=== PATIENT | female | born 1960 | race Asian ===

== ENCOUNTER 2016-02-29 05:43 | Day surgery (SDC) | payer OTHER ==
[~2016-02-29] VITALS: Ht 162.6 cm; Wt 49.9 kg
[~2016-02-29 05:43] MED LIST: NO HOME MEDS
[2016-02-29 06:36] VITALS: Ht 162.6 cm; Wt 49.9 kg
[2016-02-29] MEDS ORDERED: OMEP10CA4 PO (06:49)
[2016-02-29 06:59] VITALS: BP 123/59; PULSE 70; RESP 15
[2016-02-29] MEDS ORDERED: FENTAnyl 50 MCG/ML VIAL ONE (07:42)
[2016-02-29] MEDS ORDERED: MIDAZOLAM 1 MG/ML 2 ML INJ ONE (07:42)
[2016-02-29 08:05] VITALS: BP 105/51; PULSE 64; RESP 15
--- NOTE | 2016-02-29 18:15 | GILP ---
DATE OF PROCEDURE: 02/29/2016 NAME OF PROCEDURES: Esophagogastroduodenoscopy and biopsy. SURGEON: Celio Morgan MD PREOPERATIVE DIAGNOSES: 1. Abdominal pain. 2. Chronic heartburn. POSTOPERATIVE DIAGNOSES: 1. Hiatal hernia. 2. Lower esophageal ring. 3. Reflux esophagitis with erosions. 4. Gastritis. 5. Gastric mucosal biopsies were taken for Helicobacter pylori test. INDICATION FOR THE PROCEDURE: Ms. Rupert Cota is a 55-year-old female patient who had up per abdominal pain and chronic heartburn, not responding to therapy. The patient was scheduled for endoscopic examination for further evaluation. The procedure and possible complications were well explained to the patient. She understood and con sented to the procedure. DESCRIPTION OF PROCEDURE: Under the influence of fentanyl and Versed, the gastroscope was carefully introduced into the esophagus and under direct vision, it was advanced to the stomach and through t he pylorus into the duodenal bulb and descending duodenum. FINDINGS: ESOPHAGUS: The patient had hiatal hernia and lower esophageal ring. She had reflux esophagitis wit h erosions at the lower end. STOMACH: She had gastritis. Gastric mucosal biopsies were taken for H. pylori test. DUODENUM: Normal. She tolerated the procedure very well and there was no complication from the procedure. At the end of the procedure, she was awake with stable vital signs and she was discharged home to the care of h er family. IMPRESSION: Please see postoperative diagnosis. PLAN: 1. Continue omeprazole. 2. Add Zantac 300 mg p.o. at bedtime. 3. Await Helicobacter pylori test report. Dictated By: CELIO ARIAS/ISAIAS Conf#: [id number] DID#: [id number]
== END 2016-02-29 09:58 | disposition home or self-care (01) ==
LOC: GIL 05:43
PROVIDERS: ATTEND Internal Medicine Gastroenterology
DX: K44.9 Diaphragmatic hernia without obstruction or gangrene (principal); K21.0 Gastro-esophageal reflux disease with esophagitis; K29.70 Gastritis, unspecified, without bleeding
CPT/HCPCS: 43239; 87081; J2250; J3010; Z7610